=== PATIENT | male | born 1990 | race Caucasian/White ===

== ENCOUNTER 2020-10-30 07:42 | Outpatient (REF) | payer OTHER, SELFPAY ==
[2020-10-30 11:08] LABS: MANUAL DIFF FLAG NO
[2020-10-30 11:27] LABS: Basophils Percent Auto 0.5 % (0-2); Eosinophils Absolute Auto 0.2 X10*3/uL (0.0-0.4); Eosinophils Percent Auto 3.6 % (0-4); Hematocrit 44.6 % (42-52); Hemoglobin 14.9 g/dl (14.0-18.0); Imm Gran Abs Auto 0.01 X10*3/uL (0.00-0.03); Imm Gran Pct Auto 0.2 % (0.0-0.4); Lymphocytes Absolute Auto 2.3 X10*3/uL (1.2-4.9); Lymphocytes Percent Auto 41.5 % (20-40); Mean Corpuscular HGB Conc 33.4 g/dl (31.0-36.0); Mean Corpuscular Volume 95.7 fL (80-98); Mean Platelet Volume 9.8 fL (9.4-12.4); Monocytes Absolute Auto 0.5 X10*3/uL (0.1-1.2); Monocytes Percent Auto 8.6 % (2-11); Neutrophils Absolute Auto 2.6 X10*3/uL (2.0-8.3); Neutrophils Percent Auto 45.6 % (45-73); Platelet Count 246 X10*3/uL (160-400); Red Blood Count 4.66 X10*6/uL (4.60-5.80); Red Cell Distribution Width 12.2 % (11.0-16.0); White Blood Count 5.6 X10*3/uL (4.8-10.8)
[2020-10-30 12:09] LABS: Alanine Aminotransferase 21 U/L (0-40); Albumin Level 4.9 g/dL (3.5-5.0); Alkaline Phosphatase 81 U/L (39-117); Anion Gap 17 (12-20); Blood Urea Nitrogen 13 mg/dL (9-16); Calcium 9.4 mg/dL (8.4-10.2); Carbon Dioxide 26 mmol/L (22-29); Chloride 102 mmol/L (96-108); Cholesterol 164 mg/dL; Estimated Glomerular Filt Rate > 60; Glucose Fasting 91 mg/dL (60-99); HDL Cholesterol 47 mg/dL; LDL Cholesterol Calculated 86 mg/dl; Potassium 3.9 mmol/l (3.3-5.1); Sodium 141 mmol/L (135-145); Total Protein 7.5 g/dL (6.5-8.0); Triglycerides 159 mg/dL
[2020-10-30 12:23] LABS: Aspartate Amino Transferase 18 U/L (5-37)
== END 2020-10-30 07:43 | disposition home or self-care (01) ==
LOC: HO.HMGCLDS 07:42
PROVIDERS: PCP Internal Medicine; Visit Provider Internal Medicine
DX: Z00.00 Encounter for general adult medical examination without abnormal findings (principal); E11.9 Type 2 diabetes mellitus without complications
CPT/HCPCS: 36415; 80053; 80061; 85025

== ENCOUNTER 2021-02-20 10:23 | Outpatient (REF) | payer OTHER, SELFPAY ==
--- NOTE | 2021-02-20 10:35 | ECG_ITS ---
Test Reason : R00.2 PALPITATIONS Blood Pressure : / mmHG Vent. Rate : 055 BPM Atrial Rate : 055 BPM P-R Int : 186 ms QRS Dur : 102 ms QT Int : 390 ms P-R-T Axes : 065 080 067 degrees QTc Int : 373 ms Sinus bradycardia Otherwise normal ECG No previous ECGs available Referred By: Frederick Donnelly Electronically Signed By:GORDON RAMIREZ MD
[2021-02-20 13:39] LABS: Thyroid Stimulating Hormone 0.68 uIU/mL (0.32-4.0)
== END 2021-02-20 10:24 | disposition home or self-care (01) ==
LOC: HO.LAB 10:23
PROVIDERS: PCP Internal Medicine; Visit Provider Internal Medicine
DX: R00.2 Palpitations (principal); E03.9 Hypothyroidism, unspecified
CPT/HCPCS: 36415; 84443; 93005

== ENCOUNTER 2021-03-20 07:44 | Outpatient (REF) | payer OTHER, SELFPAY ==
[2021-03-20 10:05] LABS: MANUAL DIFF FLAG NO
[2021-03-20 10:15] LABS: Basophils Percent Auto 0.5 % (0-2); Eosinophils Absolute Auto 0.1 X10*3/uL (0.0-0.4); Eosinophils Percent Auto 3.1 % (0-4); Hematocrit 42.1 % (42-52); Imm Gran Abs Auto 0.01 X10*3/uL (0.00-0.03); Imm Gran Pct Auto 0.3 % (0.0-0.4); Lymphocytes Absolute Auto 1.4 X10*3/uL (1.2-4.9); Lymphocytes Percent Auto 36.2 % (20-40); Mean Corpuscular HGB Conc 33.3 g/dl (31.0-36.0); Mean Corpuscular Volume 93.3 fL (80-98); Mean Platelet Volume 10.2 fL (9.4-12.4); Monocytes Absolute Auto 0.3 X10*3/uL (0.1-1.2); Monocytes Percent Auto 8.9 % (2-11); Neutrophils Absolute Auto 1.9 X10*3/uL (2.0-8.3); Platelet Count 200 X10*3/uL (160-400); Red Blood Count 4.51 X10*6/uL (4.60-5.80); White Blood Count 3.8 X10*3/uL (4.8-10.8)
[2021-03-20 10:49] LABS: C Reactive Protein 0.04 mg/dL (< or = 0.50)
[2021-03-20 10:56] LABS: Erythrocyte Sedimentation Rate 2 MM/HR (0-15)
[2021-03-21 14:17] LABS: H Pylori Breath Test NOT DETECTED (NOT DETECTED)
[2021-03-22 23:58] LABS: Transglutaminase IgA 1 U/mL
[2021-03-24 22:12] LABS: Endomysial IgA Antibody Negative (Negative)
== END 2021-03-20 07:45 | disposition home or self-care (01) ==
LOC: HO.LAB 07:44
PROVIDERS: PCP Internal Medicine; Visit Provider Physician Assistant
DX: R10.9 Unspecified abdominal pain (principal); K21.9 Gastro-esophageal reflux disease without esophagitis; F41.9 Anxiety disorder, unspecified; Z91.018 Allergy to other foods; R19.7 Diarrhea, unspecified; R74.01 Elevation of levels of liver transaminase levels
CPT/HCPCS: 36415; 83013; 83516; 85025; 85652; 86140; 86255; 86256

== ENCOUNTER → 2021-05-09 14:26 | Outpatient (BNVA) | payer OTHER, SELFPAY | PROVIDERS: PCP Internal Medicine; Visit Provider Internal Medicine Cardiovascular Disease ==

== ENCOUNTER 2021-06-03 09:33 | Outpatient (REF) | payer OTHER, SELFPAY ==
[2021-06-06 22:26] LABS: Calprotectin, Fecal 38 mcg/g
== END 2021-06-03 09:34 | disposition home or self-care (01) ==
LOC: HO.LNP 09:33
PROVIDERS: Visit Provider Physician Assistant
DX: R19.7 Diarrhea, unspecified (principal)
CPT/HCPCS: 83993

== ENCOUNTER 2021-06-27 09:31 | Outpatient (REF) | payer OTHER, SELFPAY | END 2021-06-27 09:32 | disposition home or self-care (01) | LOC: HO.LAB 09:31 | PROVIDERS: PCP Internal Medicine; Visit Provider Physician Assistant | DX: Z91.018 Allergy to other foods (principal) | CPT/HCPCS: 36415; 86003 ==

== ENCOUNTER → 2021-07-02 08:32 | Outpatient (REF) | payer OTHER, SELFPAY ==
--- NOTE | 2021-07-02 08:36 | HM_ITS ---
TEST PERFORMED: Cardiac event monitoring. ENROLLMENT PERIOD: 07/02/2021 to 08/01/2021-30 days. INDICATION: Palpitations. FINDINGS: In the above monitoring period, the underlying rhythm is sinus. Rates ranged from 70 beats per minute to 129 beats per minute. There was 1 episode of dizziness noted with activity listed as moderate. At that time, rhythm was sinus tachycardia at 123 beats per minute. CONCLUSION: Study shows sinus rhythm and sinus tachycardia but no other arrhythmias. Benito Whitaker MD HS/ARMIDA / [id number]
--- NOTE | 2021-07-02 08:36 | CA_ITS ---
Transthoracic Echocardiogram Patient (Last, First, Middle): Tod Sanders, Gender: Male Date of : 1990 Age: 31 Procedure Date: 07/02/2021 Procedure Type: Transthoracic Echocardiogram Location: OP Height: 170.18 cm Weight: 64.86 kg BSA: 1.75 m2 Heart Rate: bpm BP: 98 / 60 mmHg Product Manager: NAZARIO Referring MD: Fam May MD Symptoms: I42.9 - Cardiomyopathy, unspecified Conclusions: - Normal left ventricular size, thickness, systolic function, and wall motion. - Normal right ventricular cavity size and systolic function. - No significant valvular or pericardial pathology. Findings Left Ventricle Normal left ventricular size, thickness, systolic function, and wall motion. The visually estimated ejection fraction is between 55-60%. Diastolic function is normal for age. Right Ventricle Normal right ventricular cavity size and systolic function. Atria Both atria are normal in size. Aortic Valve Normal aortic valve structure and function. There is no aortic valve stenosis. There is no aortic valve regurgitation. Mitral Valve Normal mitral valve structure and function. There is trace mitral valve regurgitation. There is no mitral valve stenosis. Pulmonic Valve The pulmonic valve is likely normal. Tricuspid Valve Normal tricuspid valve structure and function. There is no tricuspid valve regurgitation. Tricuspid regurgitation envelope is inadequate for calculation of right ventricular systolic pressure. Normal right atrial pressure. Great Vessels All visible segments of the aorta are normal in size. The visualized portions of the pulmonary artery and branches are normal. Venous The inferior vena cava is normal in size and collapses greater than 50% with inspiration. Pericardium/Pleural Normal pericardial structure. There is no evidence of pericardial effusion. Prior Study Comparison No prior study available for comparison. Measurements 2D Linear Measurements IVSd: 0.91 0.6-0.9/0.6-1.0 cm LVIDd: 4.65 3.9-5.3/4.2-5.9 cm LVIDd Index: 2.66 2.4-3.2/2.2-3.1 cm/m2 LVIDs: 3.21 2.0-3.6 cm LVPWd: 0.88 0.7-1.1 cm Ao Root: 2.70 2.1-3.5 cm LA Diam: 2.10 2.7-3.8/3.0-4.0 cm LAIDs Index: 1.20 1.5-2.3 cm/m2 LV Mass: 172.95 67-162/88-224 g LV Mass Index: 98.83 43-95/49-115 g/m2 LVOT Diam: 2.00 3.0+(-)1.3 cm 2D Systolic Function EF 4C: 76.80 >55% EF 2C: 67.40 >55% Mitral Valve MV Pk E: 0.61 MV PK A: 0.34 MV Decel Time: 193.00 E/A: 1.80 E'Lateral: 20.00 E'Medial: 12.90 E/E' Med: 4.70 E/E' Lat: 3.10 PHT: 57.00 MVA PHT: 3.86 Decel Cecil: 3.17 Aortic Valve AoV Pk Clay: 1.25 AoV Pk Grad: 6.00 LVOT LVOT Pk Clay: 1.09 LVOT Mn Clay: 0.71 LVOT VTI: 0.22 LVOT Pk Grad: 5.00 LVOT Mn Grad: 2.00 LVOT Diam: 2.00 LVOT Area: 3.14 Diastolic Function MV Pk E: 0.61 MV Pk A: 0.34 E/A: 1.80 E'Medial: 12.90 E/E' Med: 4.70 E' Laterial: 20.00 E/E' Lat: 3.10 Right Ventricle TAPSE (mm): 2.07 Tricuspid Valve RA Press: 3.00 Great Vessels Aorta Ao Root-2D: 2.70 2.0-3.7 cm Updated in Other Vendor System with Status of Final Fam May MD electronically signed on 07/03/2021 12:39:24 PM with status of Final
== END ==
LOC: HO.CARD 08:32
PROVIDERS: PCP Internal Medicine; Visit Provider Internal Medicine Cardiovascular Disease
DX: I42.9 Cardiomyopathy, unspecified (principal); R00.2 Palpitations
CPT/HCPCS: 93270; 93306

== ENCOUNTER → 2021-07-31 15:05 | Outpatient (BNVA) | payer OTHER, SELFPAY | PROVIDERS: PCP Internal Medicine; Referring Provider Internal Medicine; Visit Provider Internal Medicine Cardiovascular Disease ==

== ENCOUNTER 2022-04-15 17:18 | Outpatient (REF) | payer OTHER, SELFPAY ==
[2022-04-15 17:31] LABS: MANUAL DIFF FLAG NO
[2022-04-15 19:05] LABS: Alanine Aminotransferase 16 U/L (0-40); Albumin Level 4.8 g/dL (3.5-5.0); Alkaline Phosphatase 75 U/L (39-117); Anion Gap 14 (12-20); Aspartate Amino Transferase 14 U/L (5-37); Bilirubin Total 0.9 mg/dL (0.0-1.0); Blood Urea Nitrogen 15 mg/dL (9-16); Carbon Dioxide 27 mmol/L (22-29); Chloride 105 mmol/L (96-108); Cholesterol 170 mg/dL; Estimated Glomerular Filt Rate > 60; Glucose Fasting 86 mg/dL (60-99); HDL Cholesterol 54 mg/dL; LDL Cholesterol Calculated 86 mg/dl; Potassium 4.1 mmol/L (3.3-5.1); Sodium 142 mmol/L (135-145); Total Protein 7.4 g/dL (6.5-8.0); Triglycerides 151 mg/dL
[2022-04-15 19:09] LABS: Basophils Percent Auto 0.6 % (0-2); Eosinophils Absolute Auto 0.1 X10*3/uL (0.0-0.4); Eosinophils Percent Auto 2.4 % (0-4); Hematocrit 42.1 % (42.0-52.0); Hemoglobin 14.1 g/dl (14.0-18.0); Imm Gran Abs Auto 0.02 X10*3/uL (0.00-0.03); Imm Gran Pct Auto 0.4 % (0.0-0.4); Lymphocytes Absolute Auto 2.3 X10*3/uL (1.2-4.9); Lymphocytes Percent Auto 42.3 % (20-40); Mean Corpuscular HGB Conc 33.5 g/dl (31.0-36.0); Mean Corpuscular Hemoglobin 31.3 pg (27.0-33.0); Mean Corpuscular Volume 93.6 fL (80.0-98.0); Mean Platelet Volume 9.2 fL (9.4-12.4); Monocytes Absolute Auto 0.5 X10*3/uL (0.1-1.2); Monocytes Percent Auto 9.2 % (2-11); Neutrophils Absolute Auto 2.4 x10*3/uL (2.0-8.3); Neutrophils Percent Auto 45.1 % (45-73); Platelet Count 255 X10*3/uL (160-400); Red Cell Distribution Width 12.4 % (11.0-16.0); White Blood Count 5.3 X10*3/uL (4.8-10.8)
[2022-04-15 19:25] LABS: Thyroid Stimulating Hormone 1.49 uIU/mL (0.32-4.0)
[2022-04-17 18:12] LABS: Lyme Abs Screen <0.90 index
== END 2022-04-15 17:19 | disposition home or self-care (01) ==
LOC: HO.LAB 17:18
PROVIDERS: PCP Internal Medicine; Visit Provider Internal Medicine
DX: Z00.00 Encounter for general adult medical examination without abnormal findings (principal); Z13.0 Encounter for screening for diseases of the blood and blood-forming organs and certain disorders involving the immune mechanism; T14.8XXA Other injury of unspecified body region, initial encounter; W57.XXXA Bitten or stung by nonvenomous insect and other nonvenomous arthropods, initial encounter
CPT/HCPCS: 36415; 80053; 80061; 84443; 85025; 86617; 86618

== ENCOUNTER → 2022-12-10 14:23 | Outpatient (BNVA) | payer OTHER, SELFPAY | PROVIDERS: PCP Internal Medicine; Visit Provider Urology | DX: Z13.89 Encounter for screening for other disorder (principal) ==

== ENCOUNTER 2023-04-27 08:45 | Outpatient (AMB) | payer OTHER, SELFPAY ==
--- NOTE | 2023-04-27 08:48 | A.OFFPC_ITS ---
Vital Signs 04/27/23 08:50 Height 5 ft 7 in Weight 132 lb 4 oz BMI 20.7 BP 110/60 Blood Pressure Location Lt brachial Position Sitting Pulse 71 Pulse Source Pulse Oximeter Pulse Oximetry (%) 98 Oxygen Delivery Method Room Air Intake Visit Reasons: 6mth f/u Intake Note: Patient is here to follow up on anxiety and depression. Building Guard Deputy Sheriff Required: No Garbage Collector Driver: Not Required per policy Accompanied by: Self / Same As Patient Allergies No Known Allergies Allergy (Verified 04/27/23 08:50) Medication List - Last Reconciled 04/27/23 by Frederick Donnelly MD acetaminophen-codeine 300-30 mg 1 tab PO Q8H 3 days bupropion HCl (Wellbutrin SR) 150 mg PO BID diazepam 2 mg PO BID PRN 1 day estradiol 2 mg PO TID Tobacco use date assessed: 04/27/23 Dental Screening Dental Screen Date: 04/27/23 Did you have a dental visit in the last 12 months?: Yes Did you have a dental problem in the last 6 months where you did not have access to dental care?: No Was dental information given to patient?: Patient has dentist HPI 6mth f/u HPI Details anxiety doing well; transitioning in [facility] Surgical History History of tonsillectomy Family History (Updated 04/27/23 @ 08:54 by CHESTER Schneider) Father No problems noted. Mother No problems noted. Other Mental health disorder Substance use disorder Social History Household Members Other:: lives with fiance Housing: House Alcohol intake: current Alcohol intake frequency: a few times a week Patient Tobacco Use Status: Never used Tobacco Tobacco use type: Cigarette e-Cigarette/Vaping Use: Never Used Second Hand Smoke Exposure: No Substance Use Type: Marijuana service: No Current occupational status: employed Cognitive needs: No Hearing needs: No Vision needs: Yes (glasses) Questionnaire PHQ-9 Over the last 2 weeks, how often have you been bothered by any of the following problems? Depression Screening Interpretation: Negative Source: Developed by Drs. Ezekiel Eduardo, Kasie Sims, Álvaro York and colleagues, with an educational dale from [employer]. Thrive Questionnaire Date Thrive assessed: 10/27/22 Currently or been in a relationship where the following occur: no concerns reported LOVELY-7 AMB Questionnaire LOVELY-7 Date LOVELY - 7 assessed: 10/27/22 Source: Developed by Drs. Ezekiel Eduardo, Kasie Sims, Álvaro York and colleagues, with an educational dale from [employer]. Review of Systems Const Denies chills, Denies headache(s) and Denies weight loss ENT Reports Normal hearing present and Denies headache(s) Card Denies chest pain, Denies syncope, Denies irregular heart rhythm and Denies dyspnea Resp Denies chest congestion, Denies cough and Denies dyspnea GI Denies abdominal pain, Denies change in stool character, Denies nausea and Denies vomiting Musc Denies deformity and Denies joint swelling Neuro Reports Normal hearing present, Denies syncope and Denies headache(s) Physical exam (Primary Care) Vital Signs: Last Vital Signs Pulse 71 04/27/23 08:50 BP 110/60 04/27/23 08:50 Pulse Ox 98 04/27/23 08:50 Oxygen Delivery Method Room Air 04/27/23 08:50 BMI result Body Mass Index 20.7 Tobacco/Smoking Status: Tobacco use Status Tobacco use date assessed 04/27/23 04/27/23 08:56 Patient Tobacco Use Status Never used Tobacco 04/27/23 08:56 Tobacco use type Cigarette 04/27/23 08:56 e-Cigarette/Vaping Use Never Used 04/27/23 08:56 Depression Screening Interpretation: Negative Thrive Assessment: Date of Thrive Assessment Date Thrive assessed 10/27/22 04/27/23 08:56 Currently or been in a relationship where the following occur: no concerns reported Const General: cooperative, healthy appearing and comfortable Chest Chest palpation & inspection: normal inspection of the chest Resp Effort & Inspection: normal respiratory effort GI Inspection: Yes normal to inspection Skin Other: papule left ankle with surrouning 2 cm diam cellulitis Neuro Cranial nerves: Yes Normal hearing present Assessment and Plan Assessment & Plan (1) Anxiety: Code(s): F41.9 - Anxiety disorder, unspecified Plan: stable and same rx Coding Level of Care Code Est Pt Level 3 (02074) Diagnoses Anxiety F41.9
[2023-04-27 08:50] VITALS: BP 110/60; PULSE 71; O2SAT 98; BMI 20.7
== END 2023-04-27 09:25 | disposition home or self-care (01) ==
LOC: HO.HMGH 08:45
PROVIDERS: PCP Internal Medicine; Visit Provider Internal Medicine
DX: F41.9 Anxiety disorder, unspecified (principal)
CPT/HCPCS: 99213

== ENCOUNTER 2023-11-02 08:55 | Outpatient (AMB) | payer OTHER, SELFPAY ==
[2023-11-02 08:57] VITALS: BP 106/60; PULSE 63; O2SAT 98; BMI 21.2
--- NOTE | 2023-11-02 08:57 | A.OFFPC_ITS ---
Vital Signs 11/02/23 08:57 Height 5 ft 7 in Weight 135 lb 2 oz BMI 21.2 BP 106/60 Blood Pressure Location Lt brachial Position Sitting Pulse 63 Pulse Source Pulse Oximeter Pulse Oximetry (%) 98 Oxygen Delivery Method Room Air Intake Visit Reasons: Annual exam Tobacco Prevention Health Educator Required: No Antique Refinisher: Not Required per policy Accompanied by: Self / Same As Patient Allergies No Known Allergies Allergy (Verified 11/02/23 08:58) Medication List - Last Reconciled 11/02/23 by Frederick Donnlely MD acetaminophen-codeine 300-30 mg 1 tab PO Q8H 3 days bupropion HCl (Wellbutrin SR) 150 mg PO BID diazepam 2 mg PO BID PRN 1 day estradiol 2 mg PO TID Tobacco use date assessed: 11/02/23 Dental Screening Dental Screen Date: 11/02/23 Did you have a dental visit in the last 12 months?: Yes Did you have a dental problem in the last 6 months where you did not have access to dental care?: No Was dental information given to patient?: Patient has dentist HPI Annual exam HPI Details Gender dysphoria and transitioning; doing well PFSH Surgical History History of tonsillectomy Family History Father No problems noted. Mother No problems noted. Other Mental health disorder Substance use disorder Social History Household Members Other:: lives with fiance Housing: House Alcohol intake: current Alcohol intake frequency: a few times a week Patient Tobacco Use Status: Never used Tobacco Tobacco use type: Cigarette e-Cigarette/Vaping Use: Never Used Second Hand Smoke Exposure: No Substance Use Type: Marijuana service: No Current occupational status: employed Cognitive needs: No Hearing needs: No Vision needs: Yes (glasses) Questionnaire PHQ-9 Over the last 2 weeks, how often have you been bothered by any of the following problems? 1. Little interest or pleasure in doing things: not at all 2. Feeling down, depressed, or hopeless: not at all 3. Trouble falling or staying asleep, or sleeping too much: not at all 4. Feeling tired or having little energy: not at all 5. Poor appetite or overeating: not at all 6. Feeling bad about yourself - or that you are a failure or have let yourself or your family down: not at all 7. Trouble concentrating on things, such as reading the newspaper or watching te levision: not at all 8. Moving or speaking so slowly that other people could have noticed. Or the opposite - being so fidgety or restless that you have been moving around a lot more than usual: not at all 9. Thoughts that you would be better off or of hurting yourself in some way: not at all Total score: 0 Depression Screening Interpretation: Negative Depression Screening Done: Yes Source: Developed by Drs. Ezekiel Eduardo, Kasie Sims, Álvaro York and colleagues, with an educational dale from [employer]. Thrive Questionnaire Date Thrive assessed: 11/02/23 I am a: Patient What is your living situation today?: I have a steady place to live Within the past 12 months, did the food you bought not last and you didn't have the money to get more?: Never true Within the past 12 months, did you worry whether your food would run out before you got money to buy more?: Never true Do you have trouble paying for medicines?: No Do you have trouble getting transportation to medical appointments?: No Do you have trouble paying your heating and electricity bill?: No Do you have trouble taking care of your child, family member or friend?: No Do you have trouble with day-to-day activities such as bathing, preparing meals, shopping, managing finances, etc.?: No Are you currently unemployed and looking for a job?: No Are you interested in more education?: No Please select the resources that you would like help with: None THRIVE Score: 0 AUDIT C Alcohol Use Questionnaire (AUDIT-C) 1. How often do you have a drink containing alcohol?: 2-3 times a week 2. How many drinks containing alcohol do you have on a typical day when you are drinking?: 1 or 2 Total Score: 3 LOVELY-7 AMB Questionnaire LOVELY-7 Date LOVELY - 7 assessed: 11/02/23 Feeling nervous, anxious, or on edge: 1 = Several days Not being able to stop or control worryin = Several days Worrying too much about different things: 0 = Not at all Trouble relaxin = Not at all Being so restless that it is hard to sit still: 0 = Not at all Becoming easily annoyed or irritable: 0 = Not at all Feeling afraid as if something awful might happen: 0 = Not at all Total LOVELY-7 score (0-4 normal; 5-9 mild; 10-14 moderate; 15-21 severe): 2 Source: Developed by Drs. Ezekiel Eduardo, Kasie Sims, Álvaro York and colleagues, with an educational dale from [employer]. Review of Systems Const Denies chills, Denies fatigue, Denies headache(s) and Denies weight loss Eyes Denies change in vision, Denies diplopia and Denies eye pain ENT Denies vertigo, Denies dizziness, Denies headache(s) and Denies nasal discharge Card Denies chest pain, Denies rapid heart rate and Denies dyspnea on exertion Resp Denies chest congestion, Denies cough, Denies pain with cough and Denies dyspnea on exertion GI Denies abdominal pain, Denies hematochezia and Denies change in bowel habits Musc Denies myalgias, Denies arthralgias and Denies joint swelling Skin/Breast Denies lesions and Denies unusual bruising Neuro Denies vertigo, Denies dizziness, Denies headache(s) and Denies focal weakness Endo Denies fatigue Physical exam (Primary Care) Vital Signs: Last Vital Signs Pulse 63 11/02/23 08:57 BP 106/60 11/02/23 08:57 Pulse Ox 98 11/02/23 08:57 Oxygen Delivery Method Room Air 11/02/23 08:57 BMI result Body Mass Index 21.2 Tobacco/Smoking Status: Tobacco use Status Tobacco use date assessed 11/02/23 11/02/23 08:59 Patient Tobacco Use Status Never used Tobacco 11/02/23 08:59 Tobacco use type Cigarette 11/02/23 08:59 e-Cigarette/Vaping Use Never Used 11/02/23 08:59 PHQ-9: PHQ-9 Score PHQ-9: Total score 0 11/02/23 09:02 Depression Screening Interpretation: Negative Thrive Assessment: Date of Thrive Assessment Date Thrive assessed 11/02/23 11/02/23 08:59 Const General: cooperative, healthy appearing and no acute distress Orientation/consciousness: oriented to person, oriented to place and oriented to time HENMT Head: Yes normal to inspection, Yes normocephalic and Yes atraumatic Mouth: Normal oral and palatal mucosa present and tongue normal Throat: Yes posterior oropharynx normal and Yes uvula midline Eyes General: appearance normal, both eyes and all related structures Neck Neck: Yes normal visual inspection, Yes full ROM and Yes no lymphadenopathy Thyroid: Thyroid normal Carotids: normal carotid upstroke Chest Chest palpation & inspection: normal inspection of the chest Resp Effort & Inspection: normal respiratory effort and able to speak in complete sentences Auscultation: clear to auscultation bilaterally Cardio Jugular venous distension: no JVD Palpation: normal PMI Rate: regular rate Rhythm: regular rhythm Heart sounds: S1 normal heart sound present and S2 normal heart sound present GI Inspection: Yes normal to inspection Palpation (GI): Soft to palpation and No hepatosplenomegaly present Auscultation: normal bowel sounds General: Yes no CVA tenderness Back/Spine/Pelvis Back: no CVA tenderness Skin General skin exam: no rashes or lesions noted Neuro General: oriented to person, oriented to place and oriented to time Extrem General: Yes normal to inspection and Yes full ROM Assessment and Plan Assessment & Plan (1) Physical exam: Code(s): Z00.00 - Encounter for general adult medical examination without abnormal findings Plan: stable; do labs (2) 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 Panel Fast Today N28.9 - Disorder of kidney and ureter, unspecified, S90.562A - Insect bite (nonvenomous), left ankle, initial encounter, W57.XXXA - Bitten or stung by nonvenomous insect and other nonvenomous arthropods, initial encounter Coding Level of Care Code Est Pt Prev Care 18-39y(24327) Diagnoses Physical exam Z00.00 Gender dysphoria in adult F64.0
== END 2023-11-02 09:21 | disposition home or self-care (01) ==
PROVIDERS: Visit Provider Internal Medicine
DX: Z00.00 Encounter for general adult medical examination without abnormal findings (principal); F64.0 Transsexualism
CPT/HCPCS: 99395

== ENCOUNTER 2024-01-08 07:14 | Outpatient (REF) | payer OTHER, SELFPAY ==
[2024-01-08 07:47] LABS: MANUAL DIFF FLAG NO
[2024-01-08 08:44] LABS: Basophils Percent Auto 0.6 % (0-2); Eosinophils Absolute Auto 0.1 X10*3/uL (0.0-0.4); Eosinophils Percent Auto 4.1 % (0-4); Lymphocytes Percent Auto 31.5 % (20-40); Mean Corpuscular HGB Conc 33.3 g/dl (31.0-36.0); Mean Platelet Volume 9.7 fL (9.4-12.4); Monocytes Absolute Auto 0.4 X10*3/uL (0.1-1.2); Monocytes Percent Auto 12.6 % (2-11); Neutrophils Absolute Auto 1.6 x10*3/uL (2.0-8.3); Neutrophils Percent Auto 51.2 % (45-73); Platelet Count 222 X10*3/uL (160-400); Red Blood Count 3.87 X10*6/uL (4.60-5.80); Red Cell Distribution Width 11.9 % (11.0-16.0); White Blood Count 3.2 X10*3/uL (4.8-10.8)
[2024-01-08 09:19] LABS: Alanine Aminotransferase 19 U/L (0-40); Albumin Level 4.2 g/dL (3.5-5.0); Alkaline Phosphatase 46 U/L (39-117); Anion Gap 10 (12-20); Aspartate Amino Transferase 15 U/L (5-37); Bilirubin Total 0.3 mg/dL (0.0-1.0); Blood Urea Nitrogen 13 mg/dL (9-16); Calcium 8.8 mg/dL (8.4-10.2); Carbon Dioxide 27 mmol/L (22-29); Chloride 106 mmol/L (96-108); Cholesterol 145 mg/dL (<200); Estimated Glomerular Filt Rate > 60; Glucose Fasting 87 mg/dL (60-99); HDL Cholesterol 62 mg/dL (>40); LDL Cholesterol Calculated 69 mg/dL (<100); Potassium 3.8 mmol/L (3.3-5.1); Sodium 139 mmol/L (135-145); Total Protein 7.1 g/dL (6.5-8.0); Triglycerides 73 mg/dL (<150)
[2024-01-08 12:09] LABS: Basophils Percent Auto 0.6 % (0-2); Eosinophils Absolute Auto 0.1 X10*3/uL (0.0-0.4); Eosinophils Percent Auto 4.1 % (0-4); Lymphocytes Percent Auto 31.5 % (20-40); Mean Corpuscular HGB Conc 33.3 g/dl (31.0-36.0); Mean Platelet Volume 9.7 fL (9.4-12.4); Monocytes Absolute Auto 0.4 X10*3/uL (0.1-1.2); Monocytes Percent Auto 12.6 % (2-11); Neutrophils Absolute Auto 1.6 x10*3/uL (2.0-8.3); Neutrophils Percent Auto 51.2 % (45-73); Platelet Count 222 X10*3/uL (160-400); Red Blood Count 3.87 X10*6/uL (4.60-5.80); Red Cell Distribution Width 11.9 % (11.0-16.0); White Blood Count 3.2 X10*3/uL (4.8-10.8)
[2024-01-14 22:53] LABS: Estradiol Ultra Sensitive 114 pg/mL (< OR = 29)
[2024-01-26 07:43] LABS: Testosterone, Total 20 ng/dL (250-1100)
== END 2024-01-08 07:15 | disposition home or self-care (01) ==
LOC: HO.LAB 07:14
PROVIDERS: Absent Provider Physician Assistant; PCP Internal Medicine; Visit Provider Internal Medicine
DX: E78.5 Hyperlipidemia, unspecified (principal); S90.562A Insect bite (nonvenomous), left ankle, initial encounter; W57.XXXA Bitten or stung by nonvenomous insect and other nonvenomous arthropods, initial encounter; N28.9 Disorder of kidney and ureter, unspecified; D64.9 Anemia, unspecified; E55.9 Vitamin D deficiency, unspecified; Z79.899 Other long term (current) drug therapy
CPT/HCPCS: 36415; 80053; 80061; 82306; 82670; 84403; 85025

== ENCOUNTER 2024-02-03 09:34 | Outpatient (AMB) | payer OTHER, SELFPAY ==
[2024-02-03 09:36] VITALS: BP 100/62; PULSE 67; O2SAT 98; BMI 20.5
--- NOTE | 2024-02-03 09:36 | MHC.PC.OV ---
Vital Signs 02/03/24 09:36 Height 5 ft 7 in Weight 131 lb BMI 20.5 BP 100/62 Blood Pressure Location Lt brachial Position Sitting Pulse 67 Pulse Source Pulse Oximeter Pulse Oximetry (%) 98 Oxygen Delivery Method Room Air Intake Visit Reasons: Ear Pain Intake Note: pt is here for ear pain and also states states having knee pain for a few months Loan Documents Closer Required: No Extrusion Machine Operator: Not Required per policy Accompanied by: Self / Same As Patient Allergies No Known Allergies Allergy (Verified 02/03/24 09:39) Medication List - Last Reconciled 02/04/24 by Frederick Donnelly MD acetaminophen-codeine 300-30 mg 1 tab PO Q8H 3 days azithromycin take 500 mg today (day 1), then 250 mg for 4 days (days 2-5) PO bupropion HCl SR (Wellbutrin SR) 150 mg PO BID diazepam 2 mg PO BID PRN 1 day estradiol 2 mg PO TID Tobacco use date assessed: 11/02/23 Dental Screening Dental Screen Date: 11/02/23 HPI Ear Pain HPI Details right ear discomfort PFSH Surgical History History of tonsillectomy Family History Father No problems noted. Mother No problems noted. Other Mental health disorder Substance use disorder Social History Household Members Other:: lives with fiance Housing: House Alcohol intake: current Alcohol intake frequency: a few times a week Patient Tobacco Use Status: Never used Tobacco Tobacco use type: Cigarette e-Cigarette/Vaping Use: Never Used Second Hand Smoke Exposure: No Substance Use Type: Marijuana service: No Current occupational status: employed Cognitive needs: No Hearing needs: No Vision needs: Yes (glasses) Questionnaire Thrive Questionnaire Date Thrive assessed: 11/02/23 LOVELY-7 AMB Questionnaire LOVELY-7 Date LOVELY - 7 assessed: 11/02/23 Source: Developed by Drs. Ezekiel Eduardo, Kasie Sims, Álvaro York and colleagues, with an educational dale from [employer]. Review of Systems Const Denies chills, Denies headache(s) and Denies weight loss ENT Denies headache(s) Card Denies chest pain, Denies syncope, Denies irregular heart rhythm and Denies dyspnea Resp Denies chest congestion, Denies cough and Denies dyspnea GI Denies abdominal pain, Denies change in stool character, Denies nausea and Denies vomiting Musc Denies deformity and Denies joint swelling Neuro Denies syncope and Denies headache(s) Physical exam (Primary Care) Vital Signs: Last Vital Signs Pulse 67 02/03/24 09:36 BP 100/62 02/03/24 09:36 Pulse Ox 98 02/03/24 09:36 Oxygen Delivery Method Room Air 02/03/24 09:36 BMI result Body Mass Index 20.5 Tobacco/Smoking Status: Tobacco use Status Tobacco use date assessed 11/02/23 02/03/24 09:42 Patient Tobacco Use Status Never used Tobacco 02/03/24 09:42 Tobacco use type Cigarette 02/03/24 09:42 e-Cigarette/Vaping Use Never Used 02/03/24 09:42 Thrive Assessment: Date of Thrive Assessment Date Thrive assessed 11/02/23 02/03/24 09:42 Const General: cooperative, comfortable, no acute distress and alert HENMT Other: bilat cerum Neck Neck: Yes no lymphadenopathy Thyroid: Thyroid normal Resp Effort & Inspection: normal respiratory effort Auscultation: clear to auscultation bilaterally Percussion: percussion normal Cardio Jugular venous distension: no JVD Palpation: normal PMI Rate: regular rate Rhythm: regular rhythm Heart sounds: S1 normal heart sound present and S2 normal heart sound present GI Inspection: Yes normal to inspection Palpation (GI): No hepatosplenomegaly present Skin General skin exam: no rashes or lesions noted Extrem General: Yes no clubbing, cyanosis or edema Assessment and Plan Assessment & Plan (1) Cerumen debris on tympanic membrane: Code(s): H61.20 - Impacted cerumen, unspecified ear Plan: ent Orders: Orders XR knee RT 2V 02/03/24 M25.569 - Pain in unspecified knee Referrals Ear/Nose/Throat Referral H61.20 - Impacted cerumen, unspecified ear Medications: New azithromycin take 500 mg today (day 1), then 250 mg for 4 days (days 2-5) PO 6 tabs 0RF Coding Level of Care Code Est Pt Level 3 (37410) Diagnoses Cerumen debris on tympanic membrane H61.20
== END 2024-02-03 10:00 | disposition home or self-care (01) ==
PROVIDERS: PCP Internal Medicine; Visit Provider Internal Medicine
DX: H61.21 Impacted cerumen, right ear (principal); M25.561 Pain in right knee
CPT/HCPCS: 99213

== ENCOUNTER 2024-12-12 13:47 | Outpatient (AMB) | payer OTHER, SELFPAY ==
--- NOTE | 2024-12-12 13:51 | A.OFFPC_ITS ---
Vital Signs 12/12/24 13:53 Height 5 ft 7 in Weight 134 lb 2 oz BMI 21.0 BP 124/64 Blood Pressure Location Lt brachial Position Sitting Pulse 76 Pulse Source Pulse Oximeter Temp 97.1 F Temp Source Temporal Artery Scan Pulse Oximetry (%) 96 Oxygen Delivery Method Room Air Intake Visit Reasons: annual exam Intake Note: Patient is here today for a physical. Bicycle Racer Required: No Sql Dba: Not Required per policy Accompanied by: Self / Same As Patient Allergies No Known Allergies Allergy (Verified 12/12/24 13:52) Medication List - Last Reconciled 12/13/24 by Frederick Donnelly MD acetaminophen-codeine 300-30 mg 1 tab PO Q8H 3 days azithromycin take 500 mg today (day 1), then 250 mg for 4 days (days 2-5) PO bupropion HCl SR (Wellbutrin SR) 150 mg PO BID diazepam 2 mg PO BID PRN 1 day estradiol 2 mg PO TID Tobacco use date assessed: 12/12/24 Dental Screening Dental Screen Date: 12/12/24 Did you have a dental visit in the last 12 months?: Yes Did you have a dental problem in the last 6 months where you did not have access to dental care?: No Was dental information given to patient?: Patient has dentist HPI annual exam HPI Details Transitioning to female; goes to [facility] in [place]; depression on rx [facility] Surgical History History of tonsillectomy Family History Father No problems noted. Mother No problems noted. Other Mental health disorder Substance use disorder Social History Household Members Other:: lives with fiance Housing: House Alcohol intake: current Alcohol intake frequency: a few times a week Patient Tobacco Use Status: Never used Tobacco Tobacco use type: Cigarette e-Cigarette/Vaping Use: Former Use Second Hand Smoke Exposure: No Substance Use Type: Marijuana service: No Current occupational status: employed Cognitive needs: No Hearing needs: No Vision needs: Yes (glasses) Questionnaire PHQ-9 Over the last 2 weeks, how often have you been bothered by any of the following problems? 1. Little interest or pleasure in doing things: not at all 2. Feeling down, depressed, or hopeless: several days 3. Trouble falling or staying asleep, or sleeping too much: several days 4. Feeling tired or having little energy: several days 5. Poor appetite or overeating: not at all 6. Feeling bad about yourself - or that you are a failure or have let yourself or your family down: not at all 7. Trouble concentrating on things, such as reading the newspaper or watching television: not at all 8. Moving or speaking so slowly that other people could have noticed. Or the opposite - being so fidgety or restless that you have been moving around a lot more than usual: not at all 9. Thoughts that you would be better off or of hurting yourself in some way: not at all Total score: 3 Depression Screening Interpretation: Positive Depression Screening Done: Yes Source: Developed by Drs. Ezekiel Eduardo, Kasie Sims, Álvaro York and colleagues, with an educational dale from [employer]. Thrive Questionnaire Date Thrive assessed: 12/12/24 I am a: Patient What is your living situation today?: I have a steady place to live Within the past 12 months, did the food you bought not last and you didn't have the money to get more?: Never true Within the past 12 months, did you worry whether your food would run out before you got money to buy more?: Never true Do you have trouble paying for medicines?: No Do you have trouble getting transportation to medical appointments?: No Do you have trouble paying your heating and electricity bill?: No Do you have trouble taking care of your child, family member or friend?: No Do you have trouble with day-to-day activities such as bathing, preparing meals, shopping, managing finances, etc.?: No Are you currently unemployed and looking for a job?: No Are you interested in more education?: I choose not to answer this question Please select the resources that you would like help with: None Currently or been in a relationship where the following occur: No concerns reported THRIVE Score: 0 AUDIT C Alcohol Use Questionnaire (AUDIT-C) 1. How often do you have a drink containing alcohol?: 2-3 times a week 2. How many drinks containing alcohol do you have on a typical day when you are drinking?: 1 or 2 3. How often do you have six or more drinks on one occasion?: Less than monthly Total Score: 4 LOVELY-7 AMB Questionnaire LOVELY-7 Date LOVELY - 7 assessed: 12/12/24 Feeling nervous, anxious, or on edge: 1 = Several days Not being able to stop or control worryin = Several days Worrying too much about different things: 1 = Several days Trouble relaxin = Several days Being so restless that it is hard to sit still: 0 = Not at all Becoming easily annoyed or irritable: 1 = Several days Feeling afraid as if something awful might happen: 1 = Several days Total LOVELY-7 score (0-4 normal; 5-9 mild; 10-14 moderate; 15-21 severe): 6 Source: Developed by Drs. Ezekiel Eduardo, Kasie Sims, Álvaro York and colleagues, with an educational dale from [employer]. Review of Systems Const Denies chills, Denies fatigue, Denies headache(s) and Denies weight loss Eyes Denies change in vision, Denies diplopia and Denies eye pain ENT Denies vertigo, Denies dizziness, Denies headache(s) and Denies nasal discharge Card Denies chest pain, Denies rapid heart rate and Denies dyspnea on exertion Resp Denies chest congestion, Denies cough, Denies pain with cough and Denies dyspnea on exertion GI Denies abdominal pain, Denies hematochezia and Denies change in bowel habits Musc Denies myalgias, Denies arthralgias and Denies joint swelling Skin/Breast Denies lesions and Denies unusual bruising Neuro Denies vertigo, Denies dizziness, Denies headache(s) and Denies focal weakness Endo Denies fatigue Physical exam (Primary Care) Vital Signs: Last Vital Signs Temp 97.1 F 12/12/24 13:53 Pulse 76 12/12/24 13:53 BP 124/64 12/12/24 13:53 Pulse Ox 96 12/12/24 13:53 Oxygen Delivery Method Room Air 12/12/24 13:53 BMI result Body Mass Index 21.0 Tobacco/Smoking Status: Tobacco use Status Tobacco use date assessed 12/12/24 12/12/24 13:58 Patient Tobacco Use Status Never used Tobacco 12/12/24 13:58 Tobacco use type Cigarette 12/12/24 13:58 e-Cigarette/Vaping Use Former Use 12/12/24 13:58 PHQ-9: PHQ-9 Score PHQ-9: Total score 3 12/12/24 13:58 Depression Screening Interpretation: Positive Thrive Assessment: Date of Thrive Assessment Date Thrive assessed 12/12/24 12/12/24 13:58 Currently or been in a relationship where the following occur: No concerns reported Const General: cooperative, healthy appearing and no acute distress Orientation/consciousness: oriented to person, oriented to place and oriented to time HENMT Head: Yes normal to inspection, Yes normocephalic and Yes atraumatic Mouth: Normal oral and palatal mucosa present and tongue normal Throat: Yes posterior oropharynx normal and Yes uvula midline Eyes General: appearance normal, both eyes and all related structures Neck Neck: Yes normal visual inspection, Yes full ROM and Yes no lymphadenopathy Thyroid: Thyroid normal Carotids: normal carotid upstroke Chest Chest palpation & inspection: normal inspection of the chest Resp Effort & Inspection: normal respiratory effort and able to speak in complete sentences Auscultation: clear to auscultation bilaterally Cardio Jugular venous distension: no JVD Palpation: normal PMI Rate: regular rate Rhythm: regular rhythm Heart sounds: S1 normal heart sound present and S2 normal heart sound present GI Inspection: Yes normal to inspection Palpation (GI): Soft to palpation and No hepatosplenomegaly present Auscultation: normal bowel sounds General: Yes no CVA tenderness Back/Spine/Pelvis Back: no CVA tenderness Skin General skin exam: no rashes or lesions noted Neuro General: oriented to person, oriented to place and oriented to time Extrem General: Yes normal to inspection and Yes full ROM Coding Level of Care Code Est Pt Prev Care 18-39y(72042) Diagnoses Physical exam Z00.00 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 Orders: Orders Lipid Panel 12/12/24 Z13.220 - Encounter for screening for lipoid disorders Thyroid Stimulating Hormone 12/12/24 Z13.29 - Encounter for screening for other suspected endocrine disorder Complete Blood Count Auto Diff 12/12/24 Z13.0 - Encounter for screening for diseases of the blood and blood-forming organs and certain disorders involving the immune mechanism Comprehensive [place]. Panel Fast 12/12/24 Z13.9 - Encounter for screening, unspecified Referrals Urology Referral Z30.09 - Encounter for other general counseling and advice on contraception
[2024-12-12 13:53] VITALS: BP 124/64; PULSE 76; TEMP 36.2; O2SAT 96; BMI 21.0
== END 2024-12-12 14:15 | disposition home or self-care (01) ==
PROVIDERS: PCP Internal Medicine; Visit Provider Internal Medicine
DX: Z00.00 Encounter for general adult medical examination without abnormal findings (principal); F64.0 Transsexualism

== ENCOUNTER → 2024-12-12 13:47 | Outpatient (BNVA) | payer OTHER, SELFPAY | PROVIDERS: PCP Internal Medicine; Visit Provider Internal Medicine ==

== ENCOUNTER 2025-02-14 09:09 | Outpatient (AMB) | payer OTHER, SELFPAY ==
--- NOTE | 2025-02-14 09:16 | MHC.OFFVIS ---
Intake Visit Reasons: Vasectomy consult Intake Note: pt here today for:Vasectomy Consult uro meds:None allergies:None blood thinner:None Counter Server Required: No Allergies No Known Allergies Allergy (Verified 02/14/25 09:21) HPI Comments Details: Wilfrid is a pleasant male. He is a patient Dr. Posey. He is seen for the following urologic conditions - vasectomy Has not been seen for 2 years Would like to move ahead with vasectomy Has been using estradiol alone for testosterone suppression Vasectomy Baseline gender dysphoria Does take hormone blockade Does understand this reduces testosterone and sperm production - lab work reviewed indicating testosterone 15, estradiol 81 although significant variance - discussed urology based literature from large-scale studies examining senior care consequences of hormonal blockade to below female level testosterone that were perfromed on prostate cancer patients. These are associated with higher rates of metabolic dysfunction, osteoporosis and female body fat distribution for equivalent calorie intake - encouraged to use calcium supplements and engage in regular resistance based exercise. Has a female identifying partner who is at risk for No current children Palpable vas on examination - although testicles are smaller than typical. Does have left varicocele. Minimal symptoms. Discussion today focused on the presence of vasectomy and the risks, benefits and alternatives that are available. Vasectomy as intended as a permanent form of control. Printed information and literature was provided to the patient. Overall there is a one in 2500 failure rate. This can occur at any time after vasectomy. Risks were discussed highlighting hematoma, spermatocele, epididymal congestion, development of sperm antibodies, and development of chronic pain estimated between 1-5%. The procedure was reviewed in detail. Anatomical diagrams of the male genitalia were used to explain the location of the vas deferens. The vas deferens will be transected, the proximal end will be cauterized, a metal clip would be applied to separate the 2 vas deferens ends. It was explained the procedure will be done in the office and takes approximately 10-15 minutes. Less common problems that arise with vasectomy include hematoma, bleeding, allergic reaction to anesthetic, epididymal infection, epididymal congestion, scrotal discomfort, spermatic leak, spermatic granuloma and the possibility of antisperm antibodies. He understands these risks and wishes to proceed. Consent was signed at the office today. He also understands that it takes 12 weeks for sperm to fully clear the system. He will need to provide a semen sample at 12 weeks and if this is not clear a 2nd sample at 16 weeks. Medical clearance to stop using protection will only be provided if he satisfies published criteria for sperm clearance. . COUNT INCLUDES [facility] Surgical History History of tonsillectomy Family History Father No problems noted. Mother No problems noted. Other Mental health disorder Substance use disorder Social History Household Members Other:: lives with fiance Housing: House Alcohol intake: current Alcohol intake frequency: a few times a week Patient Tobacco Use Status: Never used Tobacco Tobacco use type: Cigarette e-Cigarette/Vaping Use: Former Use Second Hand Smoke Exposure: No Substance Use Type: Marijuana service: No Current occupational status: employed Cognitive needs: No Hearing needs: No Vision needs: Yes (glasses) Review of Systems Const Denies chills and Denies fever(s) Card Reports no additional complaints and Denies syncope Resp Denies cough GI Denies abdominal pain and Denies heartburn Reports as per HPI and Denies change in libido Neuro Denies syncope Psych Denies change in libido Endo Denies change in libido Physical Exam Const General: cooperative, healthy appearing, comfortable and no acute distress Orientation/consciousness: patient oriented x3 HEENT Face and sinus: Yes normal facial exam Mouth: moist mucous membranes Neck Neck: Yes normal visual inspection, Yes full ROM and Yes trachea midline Chest Chest palpation & inspection: normal inspection of the chest Resp Effort & Inspection: normal respiratory effort, able to speak in complete sentences and no respiratory distress GI Inspection: Yes normal to inspection Back/Spine/Pelvis Cervical Spine: normal cervical lordosis Thoracic/Lumbar Spine: thoracic and lumbar spine normal to inspection Skin General skin exam: no rashes or lesions noted Neuro General: patient oriented x3, gait normal, tone normal and moves all extremities Extrem General: Yes normal to inspection and Yes capillary refill normal Assessment & Plan Assessment & Plan (1) Anxiety about health: Code(s): F41.8 - Other specified anxiety disorders Category: Medical Plan Plan vasectomy Patient Instructions: This note is constructed using voice recognition software. While every effort has been made to ensure accuracy immigration judge errors may have been included. Imaging studies, laboratory and physical exam results were discussed and reviewed in detail. No major barriers to patient understanding were identified. An opportunity to ask questions regarding the treatment plan was provided. All questions were answered. The patient expressed understanding and agreement with the above treatment plan. The patient is aware they should contact our office by phone for worsening of their current condition or the appearance of new urologic symptoms. Compliance is encouraged with any medications and followup testing that is ordered. It is a privilege to participate in the urologic care of your patient. If you have any questions or concerns regarding treatment for the above conditions, or other urologic issues, please do not hesitate to contact me. The office telephone contact is [phone]. Sincerely, Dr Juan Teixeira MD, [facility] - Urology Compassionate Specialist Care for the Genitourinary System Coding Level of Care Code Est Pt Level 4 (49453) Diagnoses Anxiety about health F41.8
== END 2025-02-14 09:43 | disposition home or self-care (01) ==
LOC: HO.HUSH 09:10
PROVIDERS: PCP Internal Medicine; Visit Provider Urology
DX: F41.8 Other specified anxiety disorders (principal)
CPT/HCPCS: 99214

== ENCOUNTER 2025-03-21 14:53 | Outpatient (AMB) | payer OTHER, SELFPAY ==
--- NOTE | 2025-03-21 15:00 | A.OFFVIS_ITS ---
Intake Visit Reasons: vasectomy Intake Note: Patient is present for VASECTOMY Urology Medication:NONE Antibiotic Allergy:NONE Blood Thinner:NONE Configuration Manager Required: No Allergies No Known Allergies Allergy (Verified 03/21/25 15:01) HPI Comments Details: Wilfrid is a pleasant male. He is a patient Dr. Posey. He is seen for the following urologic conditions - vasectomy Has not been seen for 2 years Would like to move ahead with vasectomy Has been using estradiol alone for testosterone suppression Vasectomy Baseline gender dysphoria Does take hormone blockade Does understand this reduces testosterone and sperm production - lab work reviewed indicating testosterone 15, estradiol 81 although significant variance - discussed urology based literature from large-scale studies examining computer terminal operator consequences of hormonal blockade to below female level testosterone that were perfromed on prostate cancer patients. These are associated with higher rates of metabolic dysfunction, osteoporosis and female body fat distribution for equivalent calorie intake - encouraged to use calcium supplements and engage in regular resistance based exercise. Has a female identifying partner who is at risk for No current children Palpable vas on examination - although testicles are smaller than typical. Does have left varicocele. Minimal symptoms. [facility] Surgical History History of tonsillectomy Family History Father No problems noted. Mother No problems noted. Other Mental health disorder Substance use disorder Social History Household Members Other:: lives with fiance Housing: House Alcohol intake: current Alcohol intake frequency: a few times a week Patient Tobacco Use Status: Never used Tobacco Tobacco use type: Cigarette e-Cigarette/Vaping Use: Former Use Second Hand Smoke Exposure: No Substance Use Type: Marijuana service: No Current occupational status: employed Cognitive needs: No Hearing needs: No Vision needs: Yes (glasses) Review of Systems Const Denies chills and Denies fever(s) Card Reports no additional complaints and Denies syncope Resp Denies cough GI Denies abdominal pain and Denies heartburn Reports as per HPI and Denies change in libido Neuro Denies syncope Psych Denies change in libido Endo Denies change in libido Physical Exam Const General: cooperative, healthy appearing, comfortable and no acute distress Orientation/consciousness: patient oriented x3 HEENT Face and sinus: Yes normal facial exam Mouth: moist mucous membranes Neck Neck: Yes normal visual inspection, Yes full ROM and Yes trachea midline Chest Chest palpation & inspection: normal inspection of the chest Resp Effort & Inspection: normal respiratory effort, able to speak in complete sentences and no respiratory distress GI Inspection: Yes normal to inspection Back/Spine/Pelvis Cervical Spine: normal cervical lordosis Thoracic/Lumbar Spine: thoracic and lumbar spine normal to inspection Skin General skin exam: no rashes or lesions noted Neuro General: patient oriented x3, gait normal, tone normal and moves all extremities Extrem General: Yes normal to inspection and Yes capillary refill normal Office Procedures Vasectomy Details: Preoperative diagnosis: Anxiety regarding Postoperative diagnosis: Anxiety regarding unplanned Procedure: Bilateral vasectomy Informed consent had been completed. Preoperative and postoperative instructions were provided to the patient. The patient has transportation to home identified at the completion of the procedure. Anti-anxiolytic prescription medication had been taken after consent verification and all questions answered. Tylenol with Codeine pain medication was also provided. The penis was elevated using a rubber band that was attached to the patient's shirt. Both vasa were palpated through the skin using a 3 finger technique and the penoscrotal junction was prepped with Betadine. After Betadine application the left vas was elevated using a 3 finger grasping technique. 1% lidocaine was used to create a subdermal bubble. Further anesthetic was then advanced using the 25-gauge needle along the vasa in a proximal fashion. Approximately 2 minutes were allowed to for local anesthetic uptake. Using the sharp spreading instrument the scrotal skin was spread longitudinally in line with the vasa until the subdermal layer had been divided. The vasa was then elevated from the scrotum using a ring clamp. Care was taken to elevate the superior portion of the vasa by rotating the ring clamp in a caudad direction. The battery powered cautery was used to divide the vasal sheath in a longitudinal direction on the exposed vasa and to strip the vasal sheath from the vasa. A 2nd narrower ring clamp was placed on the exposed vas and used to lift the vas from the vasal sheath. so it grasped the elevated vas. The cautery was used to divide vasal attachments and allow full exposure of a small loop of vasa. The sharp spreading instrument was then used to create a tunnel under the vasa and spread to allow the blood vessels of the vasa to retract from the vasa. A mosquito clamp was placed on the proximal portion of the vas. The battery- powered cautery was used to make a partial division in the proximal vas and then inserted in order to cauterize the proximal end of the vas. This was then cut and allowed to retract into the vasal sheath. The mosquito was then used to twist the vasa 180 degrees creating a fascial interposition. Using a 4-0 chromic suture the fascial interposition was sutured closed. The distal portion of the vas was then cut in order to obtain a segment of vasa. The vasa were allowed to retract back into the scrotum. A small snap was then used to approximate the skin edges and allow hemostasis without placement of a suture. A similar procedure was repeated on the right side. He tolerated the procedure well. Triple antibiotic was applied. A gauze was applied. An ice pack was applied to assist with minimizing swelling. Postoperative instructions were confirmed. He understands the need to continue to use control methods. A semen sample should be brought for inspection under the microscope in 10-12 weeks. CPT 66356 Vasectomy performed by: Juan Teixeira Informed consent given: Yes Informed consent signed: Yes Time out checklist: patient, procedure, site marked/identified, positioning of patient, supplies available, allergies confirmed and team agrees on procedure 24657 - Vasectomy Office Meds lidocaine (PF) 10 mg/mL (1 %) injection solution Performing Provider: Juan Teixeira MD [facility] Administered by: Taylor Del Valle RN on 03/21/25 15:17 Dose Route Admin Location Dispensed Lot Number Expiration Date [facility] [place] Body Press Operator 2 mL Infiltration 10 mL Total Dispensed Waste 10 mL 0 % Assessment & Plan Assessment & Plan (1) Anxiety about health: Code(s): F41.8 - Other specified anxiety disorders Category: Medical Plan Three-month follow-up semen analysis Orders: Orders AMB Vasectomy 03/21/25 F41.8 - Other specified anxiety disorders Patient Instructions: This note is constructed using voice recognition software. While every effort has been made to ensure accuracy estimator errors may have been included. Imaging studies, laboratory and physical exam results were discussed and reviewed in detail. No major barriers to patient understanding were identified. An opportunity to ask questions regarding the treatment plan was provided. All questions were answered. The patient expressed understanding and agreement with the above treatment plan. The patient is aware they should contact our office by phone for worsening of their current condition or the appearance of new urologic symptoms. Compliance is encouraged with any medications and followup testing that is ordered. It is a privilege to participate in the urologic care of your patient. If you have any questions or concerns regarding treatment for the above conditions, or other urologic issues, please do not hesitate to contact me. The office telephone contact is [phone]. Sincerely, Dr Juan Teixeira MD, [facility] - Urology Compassionate Specialist Care for the Genitourinary System Coding Level of Care Code Procedure Only Diagnoses Anxiety about health F41.8 CPT Codes Office Procedure - CPT: 32610 - Vasectomy ([id number])
== END 2025-03-21 16:17 | disposition home or self-care (01) ==
LOC: HO.HUSH 14:54
PROVIDERS: PCP Internal Medicine; Visit Provider Urology
DX: F41.8 Other specified anxiety disorders (principal); Z30.2 Encounter for sterilization
CPT/HCPCS: 55250

== ENCOUNTER → 2025-03-21 14:53 | Outpatient (BNVA) | payer OTHER, SELFPAY | PROVIDERS: PCP Internal Medicine; Visit Provider Urology | DX: Z30.2 Encounter for sterilization (principal); F41.8 Other specified anxiety disorders | CPT/HCPCS: 55250; J2003 ==

== ENCOUNTER 2025-07-26 11:00 | Outpatient (AMB) | payer OTHER, SELFPAY ==
--- NOTE | 2025-07-26 11:24 | A.OFFVIS_ITS ---
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 He is a patient Dr. Posey. He is seen for the following urologic conditions - vasectomy Post vasectomy Has been using estradiol alone for testosterone suppression No sperm seen on high-powered field evaluation Tolerated procedure well Vasectomy Baseline gender dysphoria Does take hormone blockade Does understand this reduces testosterone and sperm production - lab work reviewed indicating testosterone 15, estradiol 81 although significant variance - discussed urology based literature from large-scale studies examining dedicated intermodal truck driver consequences of hormonal blockade to below female level testosterone that were perfromed on prostate cancer patients. These are associated with higher rates of metabolic dysfunction, osteoporosis and female body fat distribution for equivalent calorie intake - encouraged to use calcium supplements and engage in regular resistance based exercise. Has a female identifying partner who is at risk for No current children Palpable vas on examination - although testicles are smaller than typical. Does have left varicocele. Minimal symptoms. PFSH Surgical History History of tonsillectomy Family History Father No problems noted. Mother No problems noted. Other Mental health disorder Substance use disorder Social History Household Members Other:: lives with fiance Housing: House Alcohol intake: current Alcohol intake frequency: a few times a week Patient Tobacco Use Status: Never used Tobacco Tobacco use type: Cigarette e-Cigarette/Vaping Use: Former Use Second Hand Smoke Exposure: No Substance Use Type: Marijuana service: No Current occupational status: employed Cognitive needs: No Hearing needs: No Vision needs: Yes (glasses) Review of Systems Const Denies chills and Denies fever(s) Card Reports no additional complaints and Denies syncope Resp Denies cough GI Denies abdominal pain and Denies heartburn Reports as per HPI and Denies change in libido Neuro Denies syncope Psych Denies change in libido Endo Denies change in libido Physical Exam Const General: cooperative, healthy appearing, comfortable and no acute distress Orientation/consciousness: patient oriented x3 HEENT Face and sinus: Yes normal facial exam Mouth: moist mucous membranes Neck Neck: Yes normal visual inspection, Yes full ROM and Yes trachea midline Chest Chest palpation & inspection: normal inspection of the chest Resp Effort & Inspection: normal respiratory effort, able to speak in complete sentences and no respiratory distress GI Inspection: Yes normal to inspection Back/Spine/Pelvis Cervical Spine: normal cervical lordosis Thoracic/Lumbar Spine: thoracic and lumbar spine normal to inspection Skin General skin exam: no rashes or lesions noted Neuro General: patient oriented x3, gait normal, tone normal and moves all extremities Extrem General: Yes normal to inspection and Yes capillary refill normal Assessment & Plan Assessment & Plan (1) Anxiety about health: Code(s): F41.8 - Other specified anxiety disorders Category: Medical Plan P.r.n. follow-up Patient Instructions: This note is constructed using voice recognition software. While every effort has been made to ensure accuracy key sander errors may have been included. Imaging studies, laboratory and physical exam results were discussed and reviewed in detail. No major barriers to patient understanding were identified. An opportunity to ask questions regarding the treatment plan was provided. All questions were answered. The patient expressed understanding and agreement with the above treatment plan. The patient is aware they should contact our office by phone for worsening of their current condition or the appearance of new urologic symptoms. Compliance is encouraged with any medications and followup testing that is ordered. It is a privilege to participate in the urologic care of your patient. If you have any questions or concerns regarding treatment for the above conditions, or other urologic issues, please do not hesitate to contact me. The office telephone contact is [phone]. Sincerely, Dr Juan Teixeira MD, [facility] - Urology Compassionate Specialist Care for the Genitourinary System Coding Level of Care Code Est Pt Level 3 (44064) Diagnoses Anxiety about health F41.8
--- OUTSIDE RECORDS SUMMARY | 2025-07-26 14:43 | XMS_ITS | Clinical Summary ---
Author Organization [facility] Address [address] [place] [phone] Phone Care Team Providers Care Solar[employer] Sales Name Role Phone Frederick Donnelly MD Primary Care Provider [phone] Jessie Wong Unavailable [phone] Allergies No known active allergies Medications buPROPion (WELLBUTRIN SR) 150 MG SR 12 hr tablet Take 150 mg by mouth 2 (two) times a day. 2 Active lidocaine-priloc brendan (EMLA) cream APPLY HEAVY LAYER UNDER PLASTIC WRAP ONTO THE SKIN FOR 1 HOUR BEFORE PROCEDURE, RUB IN WELL AND REPEAT EVERY 5 MINUTES FOR ONE HOUR DIREC 3 Active multivitamins with iron-folic acid (CENTRUM COMPLETE) 18-400 mg-mcg Tab Take 1 tablet by mouth daily. Active sodium chloride (OCEAN) 0.65 % nasal spray 2 sprays by Nasal route as needed for congestion. 5 11/02/19 26 Active estradioL (ESTRACE) 2 MG tabletIndication s:female transgender hormone therapy Take 2 tablets (4 mg total) by mouth 2 (two) times a day. Indications: female transgender hormone therapy 360 tablet 5 09/16/20 25 Active Active Problems Problem Noted Date Diagnosed Date Depression 06/04/2022 Encounters Date Type Department Care Team Description 06/18/2025 Orders Only [address] [id number] Jessie Wong PA Gender incongruence 06/17/2025 Orders Only [facility] [id number] Jessie Wong PA Gender incongruence (Primary Dx); Medication management 06/16/[address] [address] Jessie Wong PA Medication Refill 05/25/2025 2:00 PM EDT Telemedicine [address] [address] Jessie Wong PA Gender incongruence (Primary Dx); Medication management; Vitamin D deficiency, unspecified 05/15/2025 Orders Only [address] [address] Jessie Wong PA Medication management (Primary Dx) 05/13/2025 Orders Only [address] [address] Jessie Wong PA Adjustment disorder with mixed anxiety and depressed mood (Primary Dx) from Last 3 Months Immunizations No known immunizations Family History Medical History Relation Comments Asthma Brother 1 No Known Problems Brother 2 No Known Problems Father Depression Mother Anxiety disorder Sister Thyroid disease Sister Relation Status Comments Brother 1 Alive Brother 2 Alive Father Alive Mother Alive Sister Alive Social History Tobacco Use Types Packs/Day Years Used Date Smoking Tobacco: Never Passive Smoke Exposure: Past Smokeless Tobacco: Never Tobacco Cessation:Counseling Given: Not Answered Alcohol Use Standard Drinks/Week Comments Yes 1 (1 standard drink = 0.6 oz pur e alcohol) drink or two biweekly Child or Family Care Answer Date Record ed Do you have problems with on e of the following making it difficult for you to work, study, or receive health care? No 11/30/2024 Education Answer Date Recorded Are you interested in help w ith more adult education (for example, completing high school, GED, job training, learning the [place] language, technical skills, or developing parenting skills)? No 11/30/2024 Are you concerned about learning? Not on file 11/30/2024 No 11/30/2024 Yes 11/30/2024 Food Answer Date Recorded Within the past 6 months we worried whether our food would run out before we got money to buy more. Never True 11/30/2024 Within the past 6 months the food we bought just didn't last and we didn't have enough money to get more. Never True Residential Stability Answer Date Recor ded What is your housing situation today? I have gladis lee 11/30/2024 How many times have you move d in the past 12 months? Zero (I did not move) 11/30/2024 Paying for Meds Answer Date Recorded Do you have trouble paying for medicines? No 11/30/2024 Paying Utility Bills Answer Date Record ed Do you have trouble paying your heating or elect ricity bill? No 11/30/2024 Transportation Answer Date Recorded Has the lack of transportati on kept you from medical appointments or from getting medications? No 11/30/2024 Unemployment Answer Date Recorded Are you currently unemployed or working on a part-time or temporary basis, and looking for work? No 11/30/2024 Digital Access Answer Date Recorded No 11/30/2024 Yes 11/30/2024 Do you have reliable internet access at home? Ye s 11/30/2024 Do you have a device (e.g., phone, tablet, computer) with a working camera? Yes 11/30/2024 Intimate Partner Violence Answer Date R ecorded Denied Basic Needs Not on file 11/30/2024 In the past 12 months have y ou been in a relationship with a person who hurts, threatens, or tries to control you? No 11/30/2024 Worried food would run out Not on file 11/30 In the past 12 months have y ou been in a relationship with a person who hurts, threatens, or tries to control you? No 11/30/2024 Sex and Gender Information Value Date Recorded Sex Assigned at Not on file Legal Sex Male 10:05 AM EDT Gender Identity Non-binary 12/27/2021 10:10 AM EDT Sexual Orientation Not on file Last Filed Vital Signs Vital Sign Reading Time Taken Comments Blood Pressure 120/60 06/04/2022 9:39 AM EDT Pulse - - Temperature - - Respiratory Rate - - Oxygen Saturation - - Inhaled Oxygen Concentration - - Weight - - Height - - Body Mass Index - - Plan of Treatment Upcoming Encounters Date Type Department Care Team (Late st Contact Info) Description 11/30/2025 1:00 PM EST Tele[facility]icine [facility] [address] [place] [address] Jessie Wong PA [address] [address] 06/21/2026 2:00 PM EDT Telemedicine [facility] [address] [place] [address] Jessie Wong PA [address] [phone] Health Maintenance Due Date Last Done Comments Adult Td,Tdap Booster 1990 HEPATITIS A VACCINES (1 of 2 - Risk 2-dose series) 01/07/2011 DEPRESSION SCREENING 06/04/2023 06/04/2022 INFLUENZA VACCINE (#1) 2025 COVID-19 VACCINE ( - 2024-2 6 season) 2025 HEPATITIS C SCREENING Completed 11/24/2022 HIV ONE-TIME SCREENING (18-6 5 YEARS) Completed 11/24/2022 SMOKING STATUS SCREENING (On ce After 26 Yrs) Completed 11/30/2024 HIB VACCINES Aged Out No longer eligi ble based on patient's age to complete this topic MENINGOCOCCAL VACCINES (ACWY) Aged Out No longer eligible based on patient's age to complete this topic MENINGOCOCCAL VACCINES (B) Aged Out N o longer eligible based on patient's age to complete this topic PNEUMOCOCCAL VACCINES (0-49 years) Aged Out No longer eligible based on patient's age to complete this topic Medical Devices Not on file Procedures Procedure Name Priority Date/Time Associated Diagnosis Comments TESTOSTERONE, TOTAL Routine 06/16/2025 2 :55 PM EDT Medication management ESTRADIOL Routine 06/16/2025 2:55 PM EDT Medication management COMPREHENSIVE METABOLIC PANEL Routine 06/16/2025 2:55 PM EDT Medication management HEPATITIS C ANTIBODY, QUALITATIVE Routine 11/24/2022 10:23 AM EST Need for hepatitis C screening test from Last 3 Months or Most Recently Relevant to Health Maintenance Results * Comprehensive metabolic panel (06/16/2025 2:55 PM EDT) Glucose 83 65 - 99 mg/dL [facility] Comment: Fasting reference interval Urea Nitrogen (BUN) 16 7 - 25 mg/dL [facility] Creatinine 1.06 0.60 - 1.26 mg/dL [facility] [place] [facility] EGFR 95 > OR = 60 mL/min/1. 73m2 [facility] [place] [facility] BUN/Creatinine Ratio SEE NOTE: 6 - 22 (calc) [facility] Comment: Not Reported: BUN and Creatinine are within reference range. Sodium 138 135 - 146 mmol/L [facility] Potassium 3.9 3.5 - 5.3 mmol/L [facility] Chloride 101 98 - 110 mmol/L [facility] Carbon Dioxide 29 20 - 32 mmol/L [facility] Calcium 9.3 8.6 - 10.3 mg/dL [facility] Protein, Total 7.2 6.1 - 8.1 g/dL [facility] [place] [facility] Albumin 4.9 3.6 - 5.1 g/dL [facility] [place] [facility] Globulin 2.3 1.9 - 3.7 g/dL (calc) [facility] Albumin/Globuli n Ratio 2.1 1.0 - 2.5 (calc) [facility] Bilirubin, Total 0.7 0.2 - 1.2 mg/dL [facility] Alkaline Phosphatase 51 36 - 130 U/L [facility] AST 13 10 - 40 U/L [facility] ALT 11 9 - 46 U/L [facility] Blood 06/16/2025 2:55 PM EDT 06/16/2025 2:55 PM EDT Narrative [facility] 06/19/2025 8:20 PM EDT FASTING:UNKNOWN FASTING: UNKNOWN us Jessie SHANNON LAB BLOOD ORDERABLES Final R esult [employer] [address],[facility] [place] [address], [place] [phone] [facility] [address] * (ABNORMAL) Estradiol (06/16/2025 2:55 PM EDT) Estradiol 75(H) < OR = 39 pg/mL [facility] Comment: Reference range established on post-pubertal patient population. No pre-pubertal reference range established using this assay. For any patients for whom low Estradiol levels are anticipated (e.g. males, pre-pubertal children and hypogonadal/post-menopausal females), the [facility] Estradiol, Ultrasensitive, LCMSMS assay is recommended (order code 32195). Please note: patients being treated with the drug fulvestrant (Faslodex(R)) have demonstrated significant interference in immunoassay methods for estradiol measurement. The cross reactivity could lead to falsely elevated estradiol test results leading to an inappropriate clinical assessment of estrogen status. [facility] order code [id number], Ultrasensitive LC/MS/MS demonstrates negligible cross reactivity with fulvestrant. Blood 06/16/2025 2:55 PM EDT 06/16/2025 2:55 PM EDT Narrative [facility] 06/19/2025 8:20 PM EDT FASTING:UNKNOWN FASTING: UNKNOWN us Jessie SHANNON LAB BLOOD ORDERABLES Final R esult [employer] [facility] [address],[facility] [place] [address], [place] [phone] [facility] [address] * Testosterone, total (06/16/2025 2:55 PM EDT) Pathologist [facility] Testosterone, Total, LC/MS/MS 433 250 - 1,100 ng/dL [facility]/Kristan ANDERSEN Comment: For additional information, please refer to http://education.[employer]/faq/ [email or web address] (This link is being provided for informational/ educational purposes only.) This test was developed and its analytical performance characteristics have been determined by [facility] [place], [place]. It has not been cleared or approved by the U.S. Food and Drug Administration. This assay has been validated pursuant to the CLIA regulations and is used for clinical purposes. Blood 06/16/2025 2:55 PM EDT 06/16/2025 2:55 PM EDT Narrative [employer] - 06/19/2025 8:20 PM EDT FASTING:UNKNOWN FASTING: UNKNOWN Jessie Wong PA LAB BLOOD ORDERABLES Final R esult Performing Organization Address City/[facility]/ZIP Co de Phone Number [employer] [address] Stir/[address] * Hepatitis C antibody, qualitative (11/24/2022 10:23 AM EST) HCV NON-REACTIV E NON-REACTI VE [facility] Blood 11/24/2022 10:2 3 AM EST 11/24/2022 10:29 AM EST Bree Machuca CNP LAB BLOOD ORDERABLES Final Res ult Performing Organization Address City/[facility]/ZIP Co de Phone Number [address] [phone] from Last 3 Months or Most Recently Relevant to Health Maintenance Insurance [facility] Care Teams [employer] Sales Relationship Specialty Start Date End Date Frederick Donnelly MD [address] [place] [address] [place] [id number] PCP - General Internal Medicine 06/13/22 Jessie Wong PA [address] [place] [id number] [email or web address] Consulting Provider Physician Fitter / Welder 10/25/24 Additional Source Comments The information contained in this document represents components of the legal health record. It is not the complete legal health record.[facility]
== END 2025-07-26 11:40 | disposition home or self-care (01) ==
LOC: HO.HUSH 11:01
PROVIDERS: PCP Internal Medicine; Visit Provider Urology
DX: F41.8 Other specified anxiety disorders (principal)
CPT/HCPCS: 99213